=== PATIENT | female | born 1940 | race Caucasian/White ===

== ENCOUNTER 2019-09-19 10:19 | Outpatient (CLI) | payer MEDICARE, SELFPAY ==
--- NOTE | ~2019-09-19 | MM_ITS ---
EXAMINATION: MM screening [facility] HISTORY: Screening mammogram TECHNIQUE: Craniocaudal and mediolateral oblique 3-D tomosynthesis images were obtained and synthetic 2-D images were generated. CAD analysis was submitted and interpreted. COMPARISON: Comparison to multiple prior studies sequentially, with oldest reviewed study dated 05/05. BREAST PARENCHYMAL COMPOSITION: The breasts are extremely dense, which lowers the sensitivity of mamm ography FINDINGS: There are benign breast calcifications. There is no evidence of suspicious mass, calcificat ion, or architectural distortion to suggest malignancy in either breast. There has been no suspicious interval change. IMPRESSION: 1. No mammographic evidence of malignancy. 2. Recommend routine screening mammography in one year. BI-RADS Category 2: Benign finding(s). Reviewed, dictated and finalized at location A.
== END 2019-09-19 10:20 | disposition home or self-care (01) ==
PROVIDERS: PCP Internal Medicine; Visit Provider Internal Medicine
DX: Z12.31 Encounter for screening mammogram for malignant neoplasm of breast (principal)
CPT/HCPCS: 77063; 77067

== ENCOUNTER 2020-11-04 09:52 | Outpatient (CLI) | payer MEDICARE, SELFPAY ==
--- NOTE | ~2020-11-04 | MM_ITS ---
EXAMINATION: MM screening [facility] BI w aj HISTORY: Screening TECHNIQUE: Craniocaudal and mediolateral oblique 3-D tomosynthesis images were obtained and synthetic 2-D images were generated. CAD analysis was submitted and interpreted. COMPARISON: Comparison to multiple prior studies sequentially, with oldest reviewed study dated 05/05. BREAST PARENCHYMAL COMPOSITION: The breasts are extremely dense, which lowers the sensitivity of mamm ography. FINDINGS: There are benign bilateral breast calcifications. There is no evidence of suspicious mass, calcification, or architectural distortion to suggest malignancy in either breast. There has been no suspicious interval change. IMPRESSION: 1. No mammographic evidence of malignancy. 2. Recommend routine screening mammography in one year. BI-RADS Category 2: Benign finding(s). Reviewed, dictated and finalized at location A.
== END 2020-11-04 09:53 | disposition home or self-care (01) ==
LOC: ANHIMG 09:56
PROVIDERS: PCP Internal Medicine; Visit Provider Internal Medicine
DX: Z12.31 Encounter for screening mammogram for malignant neoplasm of breast (principal)
CPT/HCPCS: 77063; 77067

== ENCOUNTER 2021-03-17 14:19 | Outpatient (CLI) | payer MEDICARE, SELFPAY | END 2021-03-17 14:20 | disposition home or self-care (01) | LOC: ANHAUDIO 14:27 | PROVIDERS: PCP Internal Medicine; Visit Provider Nurse Practitioner Family | DX: H90.3 Sensorineural hearing loss, bilateral (principal) | CPT/HCPCS: 92557; 92567 ==

== ENCOUNTER 2021-12-02 08:38 | Outpatient (CLI) | payer MEDICARE, SELFPAY ==
--- NOTE | ~2021-12-02 | MM_ITS ---
EXAMINATION: MM screening [facility] w aj HISTORY: Screening mammogram TECHNIQUE: Craniocaudal and mediolateral oblique 3-D tomosynthesis images were obtained and synthetic 2-D images were generated. CAD analysis was submitted and interpreted. COMPARISON: 11/04/2020, 09/19/2019, 06/23/2019 bilateral screening mammogram examinations BREAST PARENCHYMAL COMPOSITION: The breasts are extremely dense, which lowers the sensitivity of mamm ography. FINDINGS: There is no evidence of suspicious mass, calcification, or architectural distortion to sugg est malignancy in either breast. There has been no suspicious interval change. IMPRESSION: 1. No mammographic evidence of malignancy. 2. Recommend routine screening mammography in one year. BI-RADS Category 1: Negative Reviewed, dictated and finalized at location A.
== END 2021-12-02 08:39 | disposition home or self-care (01) ==
LOC: ANHIMG 08:41
PROVIDERS: PCP Internal Medicine; Visit Provider Internal Medicine
DX: Z12.31 Encounter for screening mammogram for malignant neoplasm of breast (principal)
CPT/HCPCS: 77063; 77067

== ENCOUNTER 2022-07-31 03:17 | Day surgery (SDC) | payer MEDICARE, SELFPAY ==
[2022-07-16 12:32] VITALS: BMI 22.1
--- NOTE | 2022-07-30 14:39 | PM.HPGS ---
History of Present Illness History of Present Illness Consent: Risks, benefits, and alternatives have been discussed and questions answered. Patient agrees to proceed with procedure. Chief complaint: epigastric pain Narrative: Debra Kevin is a 81 year old female Here for investigation of epigastric and right upper quadrant pain.? She also is experiencing nausea.? She describes the pain as relatively sharp.? She gets it a couple times a day.? Usually lasts anywhere from 10 minutes to about 30 minutes.? She is nauseated at times but has not been vomiting.? Her weight is stable.? She finds that if she eats a little she feels better but if she eats too much she gets very uncomfortable and full.? She added that she has lost weight and wonders if her internal organs are being squeezed.? She has a history of ulcer,? Originally diagnosed about 25 years ago.? At that time she had been on meloxicam Review of Systems Review of Systems: All systems reviewed & are unremarkable except as noted in HPI and below PMFSH Past Medical History Medical History Acute sinusitis Carpal tunnel syndrome Disorder of coccyx Essential hypertension Gallstone Hx of transient ischemic attack (TIA) Hyperlipidemia Hypertriglyceridemia Hypothyroidism Knee pain Low back pain Malignant melanoma Osteoarthritis Overactive bladder Spinal enthesopathy Wrist joint pain Surgical History Surgical History History of basal cell carcinoma excision History of carpal tunnel surgery Hx of total knee replacement Hx of vaginal surgery Family History Family History Father Cerebrovascular accident Mother Family history of Alzheimer's disease Family history of congestive heart failure Sibling Family history of Alzheimer's disease Family history of heart disease in male family member before age 55 Social History Social History Smoking status: Never smoker Alcohol intake: current Drinks per week: 3 Substance use: never Substance use type: does not use Living arrangements: alone Meds Home Medications and Allergies Home Medications Medication Instructions Recorded Confirmed Type amitriptyline 25 mg tablet 25 mg PO QHS 07/09/22 07/31/22 History amlodipine 5 mg tablet 5 mg PO DAILY 07/09/22 07/31/22 History esomeprazole magnesium 40 mg 40 mg PO DAILY 07/09/22 07/31/22 History capsule,delayed release gabapentin 300 mg capsule 300 mg PO DAILY 07/09/22 07/31/22 History hydrochlorothiazide 12.5 mg tablet 12.5 mg PO DAILY 07/09/22 07/31/22 History levothyroxine 75 mcg capsule 75 mcg PO DAILY 07/09/22 07/31/22 History lisinopril 40 mg tablet 40 mg PO DAILY 07/09/22 07/31/22 History simvastatin 20 mg tablet 20 mg PO DAILY 07/09/22 07/31/22 History tizanidine 2 mg capsule 2 mg PO DAILY 07/09/22 07/31/22 History tramadol 50 mg tablet 50 mg PO Q6H PRN Pain 07/09/22 07/31/22 History triamcinolone acetonide 0.1 % 1 applic topical BID 07/09/22 07/31/22 History topical cream valacyclovir 500 mg tablet 500 mg PO TID PRN Cold Sores 07/09/22 07/31/22 History denosumab 60 mg/mL subcutaneous 60 mg subcut [id number] 07/14/22 07/31/22 History syringe aspirin 81 mg tablet 81 mg PO DAILY 07/16/22 07/31/22 History Allergies Allergy/AdvReac Type Severity Reaction Status Date / Time No Known Allergies Allergy Verified 07/31/22 10:31 Exam Const: General: alert Orientation/consciousness: patient oriented x3 Resp: Auscultation: clear to auscultation bilaterally Cardio: Rhythm: regular rhythm GI: GI Palp: Yes Soft to palpation and No Tenderness to palpation present (GI) Neuro: General: patient oriented x3 Assessment and Plan Assessment and plan (1) Epigastric pain: Code(s): R10.13 - Epigastric pain Status: Acute
--- NOTE | 2022-07-31 10:05 | WPDANESEPPF ---
Anes - Initial Pre Proc Eval Procedure: Operation Date: 07/31/22 11:30 Proposed Procedures p Esophagogastroduodenoscopy - Christos Pressley MD Date/Time: 07/31/22 10:05 Surgeon: Christos Pressley MD Pre Op Diagnosis: epigastric pain Patient Data Age: 81 Gender: F Height: 1.47 m Weight: 48 kg Allergies Allergy/AdvReac Type Severity Reaction Status Date / Time No Known Allergies Allergy Verified 07/31/22 10:31 Home Medications Medication Instructions Recorded Confirmed Type amitriptyline 25 mg tablet 25 mg PO QHS 07/09/22 07/31/22 History amlodipine 5 mg tablet 5 mg PO DAILY 07/09/22 07/31/22 History esomeprazole magnesium 40 mg 40 mg PO DAILY 07/09/22 07/31/22 History capsule,delayed release gabapentin 300 mg capsule 300 mg PO DAILY 07/09/22 07/31/22 History hydrochlorothiazide 12.5 mg tablet 12.5 mg PO DAILY 07/09/22 07/31/22 History levothyroxine 75 mcg capsule 75 mcg PO DAILY 07/09/22 07/31/22 History lisinopril 40 mg tablet 40 mg PO DAILY 07/09/22 07/31/22 History simvastatin 20 mg tablet 20 mg PO DAILY 07/09/22 07/31/22 History tizanidine 2 mg capsule 2 mg PO DAILY 07/09/22 07/31/22 History tramadol 50 mg tablet 50 mg PO Q6H PRN Pain 07/09/22 07/31/22 History triamcinolone acetonide 0.1 % 1 applic topical BID 07/09/22 07/31/22 History topical cream valacyclovir 500 mg tablet 500 mg PO TID PRN Cold Sores 07/09/22 07/31/22 History denosumab 60 mg/mL subcutaneous 60 mg subcut [id number] 07/14/22 07/31/22 History syringe aspirin 81 mg tablet 81 mg PO DAILY 07/16/22 07/31/22 History Patient hx anesthesia problems: none Family hx anesthesia problems: none Results Review: All pre-operative results and documents have been reviewed as part of the pre-operative evaluation. [facility] Past Medical History Medical History Acute sinusitis Carpal tunnel syndrome Disorder of coccyx Essential hypertension Gallstone Hx of transient ischemic attack (TIA) Hyperlipidemia Hypertriglyceridemia Hypothyroidism Knee pain Low back pain Malignant melanoma Osteoarthritis Overactive bladder Spinal enthesopathy Wrist joint pain Surgical History Surgical History History of basal cell carcinoma excision History of carpal tunnel surgery Hx of total knee replacement Hx of vaginal surgery Family History Family History Father Cerebrovascular accident Mother Family history of Alzheimer's disease Family history of congestive heart failure Sibling Family history of Alzheimer's disease Family history of heart disease in male family member before age 55 Social History Social History Smoking status: Never smoker Alcohol intake: current Drinks per week: 3 Substance use: never Substance use type: does not use Living arrangements: alone Anes - Eval Final PreProcedure Day of Procedure 07/31/22 10:05 Patient weight: normal Heart: regular rate and rhythm Lungs: clear to auscultation and normal air movement Airway: Mallampati scale class II Neurological: alert and oriented Last oral intake: >/= 8 hours ASA classification: III Emergent: no Anesthetic plan: proceed Anesthesia type and monitoring: general GIVS Results Review: All pre-operative results and documents have been reviewed as part of the pre-operative evaluation. Informed Consent: The patient's anesthetic plan and its attendant risks and benefits were discussed with the patient/family/POA. Questions were solicited and answers provided to the satisfaction of the patient/family/POA.
[2022-07-31 10:48] VITALS: BP 179/89; PULSE 83; RESP 20; TEMP 36.4; O2SAT 100
[2022-07-31] MEDS: LACTATED RINGERS 1,000 ML 150 ML IV CONT (11:01)
[2022-07-31 11:31] VITALS: BP 134/77; PULSE 92; RESP 17; TEMP 36.4; O2SAT 100
[2022-07-31 11:41] VITALS: BP 119/64; PULSE 89; RESP 23; TEMP 36.4; O2SAT 100
[2022-07-31 11:51] VITALS: BP 134/76; PULSE 73; RESP 16; TEMP 36.4; O2SAT 100
== END 2022-07-31 12:06 | disposition home or self-care (01) ==
PROVIDERS: PCP Internal Medicine; Visit Provider Internal Medicine Gastroenterology
PROC: 0DJ08ZZ Inspection of Upper Intestinal Tract, Via Natural or Artificial Opening Endoscopic (ICD-10-PCS; CPT 43235; principal; 2022-07-31 11:30)
DX: K25.3 Acute gastric ulcer without hemorrhage or perforation (principal); K25.7 Chronic gastric ulcer without hemorrhage or perforation; R63.4 Abnormal weight loss; Z68.22 Body mass index [BMI] 22.0-22.9, adult; I10 Essential (primary) hypertension; E78.5 Hyperlipidemia, unspecified; E78.1 Pure hyperglyceridemia; E03.9 Hypothyroidism, unspecified; Z82.49 Family history of ischemic heart disease and other diseases of the circulatory system; F10.90 Alcohol use, unspecified, uncomplicated; Z87.891 Personal history of nicotine dependence; Z79.52 Long term (current) use of systemic steroids; Z79.82 Long term (current) use of aspirin; Z79.899 Other long term (current) drug therapy
CPT/HCPCS: 43239; 88305; 88342; J2704; J7120

== ENCOUNTER 2023-03-19 13:04 | Inpatient (IN) | payer MEDICARE, SELFPAY ==
[2023-03-19] VITALS (16 sets, daily range): BP systolic 141–219; BP diastolic 71–99; PULSE 71–105; RESP 13–29; TEMP 36.6–36.8; O2SAT 95–100
--- NOTE | ~2023-03-19 | CT_ITS ---
EXAMINATION: CT brain wo con INDICATION: Headache COMPARISON: None TECHNIQUE: Standard unenhanced head CT. The dose-length product (DLP) was 605.33 mGy-cm. The mA was a djusted according to patient size. Iterative reconstruction technique was employed. FINDINGS: No acute intraparenchymal hemorrhage. No evidence of mass lesion. No evidence of acute infa rction. There is mild periventricular and subcortical hypodensity probably related to small vessel is chemic disease. There is mild prominence of the sulci and ventricles related to cerebral atrophy. Int racranial calcified cerebral atherosclerosis is noted. No extra-axial collections. No mass effect or midline shift. Changes in the globes are likely from ocular lens surgery. The visualized sinuses and mastoid air cells are well aerated. IMPRESSION: 1. No acute intracranial abnormality. 2. Age related findings. Reviewed, dictated and finalized at location F.
--- NOTE | ~2023-03-19 | XR_ITS ---
EXAMINATION: XR chest 2V 03/19/2023 13:45 INDICATION: Weakness. PROCEDURE: 2 view chest COMPARISON: No prior studies for comparison. FINDINGS: The lungs are clear. The cardiomediastinal silhouette is within normal limits. There are no pleural effusions. There is no pneumothorax suspected. There is atherosclerosis of the aorta. Th ere is scoliosis. There are surgical fusion changes at the cervicothoracic junction. IMPRESSION: 1: NO ACUTE CARDIOPULMONARY DISEASE. Reviewed, dictated and finalized at location B.
--- NOTE | ~2023-03-19 | CT_ITS ---
EXAMINATION: CTA brain carotid DATE: 03/19/2023 19:35 INDICATION: Expressive aphasia TECHNIQUE: Computed tomographic angiography (CTA) of the head was performed with 100 mL Omnipaque-350 intravenous contrast. CTA of the neck was performed with intravenous contrast. The dose-length produ ct was 890.70 mGy-cm. Maximum intensity projection and volume rendered 3D-reconstructions were create d by the technologist on a separate workstation. Automated exposure control and iterative reconstruct ion technique were employed. COMPARISON: None. FINDINGS: HEAD CTA: There is no acute intraparenchymal hemorrhage. No evidence of mass lesion. No evidence of a cute infarction. There is mild periventricular and subcortical hypodensity probably related to small vessel ischemic disease. There is mild prominence of the sulci and ventricles related to cerebral atr ophy. Intracranial calcified cerebral atherosclerosis is noted. There are no extra-axial collections. There is no mass effect or midline shift. Changes in the globes are likely from ocular lens surgery. The visualized sinuses and mastoid air cells are well aerated. There is no significant stenosis of the basilar artery or posterior cerebral arteries. There is no si gnificant stenosis of the intracranial internal carotid arteries or the anterior or middle cerebral a rteries. The anterior communicating artery and posterior communicating arteries are normal. There is no aneurysm. NECK CTA: The thyroid gland is unremarkable. The submandibular and parotid glands are symmetric. Ther e is no lymphadenopathy. There are no masses identified. The airway is unremarkable. The superior med iastinum is unremarkable. There are surgical changes of the cervical spine. There is 0% stenosis of the proximal right internal carotid artery relative to normal distal artery l umen diameter (NASCET criteria). There is 25% stenosis of the proximal left internal carotid artery r elative to normal distal artery lumen diameter. IMPRESSION: 1. No acute intracranial abnormality. Normal head CTA. 2. 0% stenosis of the proximal right internal carotid artery relative to normal distal artery lumen d iameter (NASCET criteria). 3. 25% stenosis of the proximal left internal carotid artery relative to normal distal artery lumen d iameter. Reviewed, dictated and finalized at location F. IMPRESSION: 1. No acute intracranial abnormality. Normal head CTA. 2. 0% stenosis of the proximal right internal carotid artery relative to normal distal artery lumen diameter (NASCET criteria). 3. 25% stenosis of the proximal left internal carotid artery relative to normal distal artery lumen diameter.
--- NOTE | ~2023-03-19 | MR_ITS ---
EXAMINATION: MR brain/brain stem wo/w con DATE: 03/20/2023 11:27 INDICATION: Transient ischemic episode TECHNIQUE: Magnetic resonance imaging (MRI) of the brain and brainstem was performed without and with 9 mL Multihance intravenous contrast. Sequences included sagittal and axial T1-weighted SE, axial di ffusion-weighted FS SE, axial T2*-weighted GRE, axial T2-weighted FLAIR, and axial T2-weighted FSE. P ostcontrast axial, sagittal and coronal T1-weighted SE was obtained. Apparent diffusion coefficient ( ADC) maps were created. COMPARISON: Head CT and CT angiogram dated 03/19/2023 FINDINGS: There are no areas of restricted diffusion to suggest acute infarction. No intracranial hemorrhage or abnormal intracranial mass lesion. There are scattered areas of nonspecific increased T2-weighted si gnal intensity in the cerebral white matter, predominantly involving the deep and periventricular whi te matter which is within normal limits for age. 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 No other abnormally enhancing lesions identified. There are no intraparenchymal signal abnormalities seen on the other pulse sequences. The ventricles are symmetric and normal in size. The re are no abnormal extra-axial fluid collections. Flow voids are seen in the cerebral arteries on the T2-weighted sequences consistent with their expected patency. Changes of bilateral intraocular lens replacement. Metallic magnetic field artifact along the posterior aspect of the cervical and upper mo st thoracic spine consistent with an instrumented posterior spinal fusion. IMPRESSION: 1. 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 No acute intracranial pr ocess or other abnormally enhancing brain lesions. 2. Scattered periventricular predominant white matter T2 hyperintensity which is within normal limits for age and likely sequela of chronic small vessel ischemic disease. Reviewed, dictated and finalized at location A. IMPRESSION: 1. 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 No acute intracranial process or other abnormally enhancing brain lesions. 2. Scattered periventricular predominant white matter T2 hyperintensity which i s within normal limits for age and likely sequela of chronic small vessel ische nasra disease.
--- NOTE | ~2023-03-19 | US_ITS ---
EXAMINATION: US retroperitoneal duplex ltd DATE: 03/24/2023 08:39 INDICATION: hypertension TECHNIQUE: Multiple grayscale, color Doppler, and pulsed Doppler images of the kidneys and renal duyen brisa were obtained. COMPARISON: None. FINDINGS: The aorta peak systolic velocity is 154 cm/s. The right renal artery peak systolic velocity is 54 cm/ s in the proximal segment, 53 cm/s in the mid segment, and 68 cm/s in the distal segment. The left re nal artery peak systolic velocity is 81 cm/s in the proximal segment, 69 cm/s in the mid segment, and 78 cm/s in the distal segment. IMPRESSION: 1. No Doppler evidence of renal artery stenosis. Reviewed, dictated and finalized at location A.
--- NOTE | 2023-03-19 13:12 | ECG_ITS ---
Measurements Intervals [place] Rate: 77 P: 65 OR: 159 QRS: -48 QRSD: 86 T: 10 QT: 358 QTc: 406 Interpretive Statements SINUS RHYTHM POSSIBLE LEFT ATRIAL ENLARGEMENT INCOMPLETE RIGHT BUNDLE BRANCH BLOCK POSSIBLE LEFT VENTRICULAR HYPERTROPHY CONSIDER ANTERIOR INFARCT, AGE INDETERMINATE INFERIOR INFARCT, AGE INDETERMINATE ABNORMAL ECG NO PREVIOUS ECG AVAILABLE FOR COMPARISON Electronically Signed On 03-19-2023 20:34:14 CDT by Alfred Aguilar D.O.
[2023-03-19 13:31] LABS: Basophils Percent Auto 0.6 % (0.2-1.2); Eosinophils Absolute Auto 0.1 K/mm3 (0-0.3); Eosinophils Percent Auto 1.5 % (0-4.4); Hematocrit 37.5 % (37.0-47.0); Hemoglobin 12.3 g/dL (12.0-15.0); Immature Granulocyte Absolute 0.01 K/mm3 (0.00-0.031); Immature Granulocyte Percent A 0.1 % (0-0.5); Lymphocytes Absolute Auto 1.29 K/mm3 (0.9-3.2); Lymphocytes Percent Auto 19.3 % (18.3-44.2); Mean Corpuscular HGB Conc 32.8 g/dl (32-36); Mean Corpuscular Hemoglobin 34.8 pg (26-34); Mean Corpuscular Volume 106.2 fl (80-100); Mean Platelet Volume 8.3 fl (7.4-10.4); Monocytes Absolute Auto 0.5 K/mm3 (0.1-0.6); Monocytes Percent Auto 7.9 % (2.6-8.5); Neutrophils Absolute Auto 4.7 K/mm3 (1.3-6.7); Neutrophils Percent Auto 70.6 % (45.5-73.1); Platelet Count Result 269 k/mm3 (150-375); Red Blood Count 3.53 M/mm3 (4.2-5.4); Red Cell Distribution Width 12.8 % (11.5-14.5); White Blood Count 6.7 K/mm3 (4.5-10.0)
[2023-03-19 13:41] LABS: Alanine Aminotransferase 31 U/L (6-35); Albumin Level 4.6 g/dL (3.5-5.1); Alkaline Phosphatase 51 U/L (38-126); Anion Gap 11 mmol/L (8-16); Aspartate Amino Transferase 43 U/L (14-36); Bilirubin,Total 0.3 mg/dL (0.2-1.3); Blood Urea Nitrogen 27 mg/dL (7-17); Calcium 9.3 mg/dL (8.4-10.2); Carbon Dioxide 21 mmol/L (22-30); Chloride 99 mmol/L (98-107); Estimated Glomerular Filt Rate 43; Glucose 135 mg/dL (65-110); Potassium 4.5 mmol/L (3.4-5.0); Sodium 131 mmol/L (137-145)
[2023-03-19 13:49] LABS: Anisocytosis 1+ (NORMAL); Platelet Estimate Adequate (Adequate); Schistocytes None Seen (NORMAL)
[2023-03-19 14:14] LABS: Appearance Urine Clear (Clear); Bilirubin Urine Negative (Negative); Blood Urine Negative (Negative); Color Urine Dark Yellow (Yellow); Glucose Urine UA Negative (Negative); Ketones Urine Negative (Negative); Leukocyte Esterase Ur Negative LEU/UL (Negative); Nitrate Urine Negative (Negative); Protein Urine Negative (Negative); Specific Grav Ur 1.013 (1.001-1.035); Urobilinogen Urine 0.2 mg/dL (<2.0)
[2023-03-19 14:23] LABS: Add Urine Microscopic? NO
--- NOTE | 2023-03-19 17:28 | ED.WEAKNESS ---
HPI - Weakness General Chief complaint: Weakness Stated complaint: headache since wednesday, shakey since this morning Time Seen by Provider: 03/19/23 16:58 History of Present Illness HPI Narrative: 82-year-old female with a history of hypertension, TIA, hyperlipidemia, hypothyroidism reports for evaluation for generalized weakness, unsteady gait, difficulty concentrating and expressive aphasia this morning. Patient states she woke up at 6:15 AM and felt that her gait was more unsteady than usual. States she was discharged and came home at around 9:30 AM began having difficulty concentrating while reading the newspaper and states she had difficulty finding words along with generalized weakness. She states her symptoms improved at 3:30 PM, however she still feels brain fog and generalized weakness. She also reports a headache since yesterday that is in her left occiput. She originally stated that she had vision changes, however upon further questioning, she denied blurred vision, diplopia or loss of vision. She states that she feels the blurred vision was more difficulty concentrating than it was true vision changes. She denies head injury or trauma, she is not anticoagulated. Denies focal numbness or weakness, neck pain, fever. She reports a cough that is unchanged from baseline. Denies chest pain or shortness of breath, abdominal pain, nausea or vomiting, diarrhea, dysuria or hematuria. She states that she has residual left-sided weakness from prior TIA. Reports taking all of her medications as prescribed this morning. Related Data Home Medications Medication Instructions Recorded Confirmed amitriptyline 25 mg tablet 25 mg PO QHS 07/09/22 03/20/23 amlodipine 5 mg tablet 5 mg PO DAILY 07/09/22 03/20/23 gabapentin 300 mg capsule 300 mg PO HS 07/09/22 03/20/23 hydrochlorothiazide 12.5 mg tablet 12.5 mg PO DAILY 07/09/22 03/20/23 levothyroxine 75 mcg capsule 75 mcg PO DAILY 07/09/22 03/20/23 lisinopril 40 mg tablet (Zestril) 40 mg PO DAILY 07/09/22 03/20/23 simvastatin 20 mg tablet 20 mg PO DAILY 07/09/22 03/20/23 tizanidine 2 mg capsule 2 mg PO PRN PRN muscle spasms 07/09/22 03/20/23 tramadol 50 mg tablet 50 mg PO Q6H PRN Pain 07/09/22 03/20/23 valacyclovir 500 mg tablet 500 mg PO TID PRN Cold Sores 07/09/22 03/20/23 denosumab 60 mg/mL subcutaneous 60 mg subcut [id number] 07/14/22 03/20/23 syringe aspirin 81 mg tablet 81 mg PO DAILY 07/16/22 03/20/23 acetaminophen 1,000 mg PO Q6H 03/20/23 03/20/23 dextromethorphan-guaifenesin 30 1 - 2 tablet PO PRN PRN cough, 03/20/23 03/20/23 mg-600 mg tablet extended congestion [id number] hr (Mucinex DM) esomeprazole magnesium 40 mg 40 mg PO DAILY 03/20/23 03/20/23 capsule,delayed release (Nexium) Allergies Allergy/AdvReac Type Severity Reaction Status Date / Time No Known Allergies Allergy Verified 07/31/22 10:31 Review of Systems Review of Systems: CONSTITUTIONAL: Denies fever, chills EYES: See HPI ENT: Denies rhinorrhea, congestion, sore throat, or otalgia. CARDIOVASCULAR: Denies chest pain, palpitations, or edema. RESPIRATORY: See HPI GASTROINTESTINAL: Denies abdominal pain, nausea, vomiting, or diarrhea. GENITOURINARY: Denies dysuria or hematuria. SKIN: Denies rash or itching. MUSCULOSKELETAL: Denies back pain, joint pain, or myalgia. NEUROLOGIC: See HPI PSYCHIATRIC: Denies anxiety or depression. [facility] Past Medical History Medical History Acute sinusitis Carpal tunnel syndrome Disorder of coccyx Essential hypertension Gallstone Hx of transient ischemic attack (TIA) Hyperlipidemia Hypertriglyceridemia Hypothyroidism Knee pain Low back pain Malignant melanoma Osteoarthritis Overactive bladder Spinal enthesopathy Wrist joint pain Surgical History Surgical History History of basal cell carcinoma excision History of carpal tunnel surgery Hx of total k
[2023-03-19 17:52] LABS: Prothrombin Time 13.3 Seconds (11.1-14.7)
[2023-03-19 17:53] LABS: Partial Thromboplastin Time 35.2 SECONDS (22.3-36.8)
[2023-03-19 18:01] LABS: Troponin I < 0.012 ng/mL (0.000-0.034)
[2023-03-19] MEDS: ASPIRIN 81 MG CHEWABLE TABLET 324 MG PO (18:20)
[2023-03-19] MEDS: ACETAMINOPHEN 325 MG TABLET 650 MG PO (19:03)
[2023-03-19] MEDS: diphenhydrAMINE HCl INJ 50 MG/ML VIAL 25 MG IV PUSH (19:03)
[2023-03-19] MEDS: SODIUM CHLORIDE 0.9% IV 1,000 ML 999 ML IV CONT (19:04)
[2023-03-19] MEDS: PROCHLORPERAZINE EDISYLATE 10 MG/2 ML VIAL IV PUSH (19:04)
[2023-03-19 20:05] LABS: Phosphorus 4.5 mg/dL (2.5-4.5)
[2023-03-19] MEDS: hydrALAZINE HCL 20 MG/ML VIAL 10 MG IV PUSH (20:26)
--- NOTE | 2023-03-19 21:46 | PM.IMHP ---
H&P: HPI History of Present Illness Date/Time: 03/19/23 21:46 Chief Complaint: ams Narrative: THIS IS AN 82-YEAR-OLD FEMALE WITH PAST MEDICAL HISTORY SIGNIFICANT FOR HYPERTENSION, HYPOTHYROIDISM, OSTEOARTHRITIS, LOWER BACK PAIN, PATIENT COMES TO THE EMERGENCY ROOM AFTER HAVING EPISODE OF SPEECH DISTURBANCE HEADACHE BLURRY VISION. PATIENT HAD BEEN IN HER USUAL STATE OF HEALTH UP UNTIL THIS POINT, DENIES ANY LOSS OF CONSCIOUSNESS SYNCOPE NEAR SYNCOPE DIZZINESS OR LIGHTHEADEDNESS. IN EMERGENCY ROOM PATIENT WAS FOUND TO HAVE A SYSTOLIC BLOOD PRESSURE IN THE 200S. AT THE TIME OF MY VISIT PATIENT'S SYMPTOMS HAD RESOLVED PRELIMINARY WORKUP HAS BEEN ESSENTIALLY NONREVEALING EXAMINATION: XR chest 2V 03/19/2023 13:45 INDICATION: Weakness. PROCEDURE:? 2 view chest COMPARISON: No prior studies for comparison. FINDINGS: The lungs are clear.? The cardiomediastinal silhouette is within normal limits.? There are no pleural effusions.? There is no pneumothorax suspected.? There is atherosclerosis of the aorta. There is scoliosis. There are surgical fusion changes at the cervicothoracic junction. IMPRESSION: 1:? NO ACUTE CARDIOPULMONARY DISEASE. EXAMINATION: CT brain wo con ? INDICATION: Headache ? COMPARISON: None TECHNIQUE: Standard unenhanced head CT. The dose-length product (DLP) was 605.33 mGy-cm. The mA was adjusted according to patient size. Iterative reconstruction technique was employed. ? FINDINGS: No acute intraparenchymal hemorrhage. No evidence of mass lesion. No evidence of acute infarction. There is mild periventricular and subcortical hypodensity probably related to small vessel ischemic disease. There is mild prominence of the sulci and ventricles related to cerebral atrophy. Intracranial calcified cerebral atherosclerosis is noted. No extra-axial collections. No mass effect or midline shift. Changes in the globes are likely from ocular lens surgery. The visualized sinuses and mastoid air cells are well aerated. IMPRESSION: 1. No acute intracranial abnormality. 2. Age related findings. EXAMINATION: CTA brain carotid DATE: 03/19/2023 19:35 INDICATION: Expressive aphasia TECHNIQUE: Computed tomographic angiography (CTA) of the head was performed with 100 mL Omnipaque-350 intravenous contrast. CTA of the neck was performed with intravenous contrast. The dose-length product was 890.70 mGy-cm. Maximum intensity projection and volume rendered 3D-reconstructions were created by the technologist on a separate workstation. Automated exposure control and iterative reconstruction technique were employed. COMPARISON: None. FINDINGS: HEAD CTA: There is no acute intraparenchymal hemorrhage. No evidence of mass lesion. No evidence of acute infarction. There is mild periventricular and subcortical hypodensity probably related to small vessel ischemic disease. There is mild prominence of the sulci and ventricles related to cerebral atrophy. Intracranial calcified cerebral atherosclerosis is noted. There are no extra-axial collections. There is no mass effect or midline shift. Changes in the globes are likely from ocular lens surgery.? The visualized sinuses and mastoid air cells are well aerated. There is no significant stenosis of the basilar artery or posterior cerebral arteries. There is no significant stenosis of the intracranial internal carotid arteries or the anterior or middle cerebral arteries. The anterior communicating artery and posterior communicating arteries are normal. There is no aneurysm. NECK CTA: The thyroid gland is unremarkable. The submandibular and parotid glands are symmetric. There is no lymphadenopathy. There are no masses identified. The airway is unremarkable. The superior mediastinum is unremarkable. There are surgical changes of the cervical spine. There is 0% stenosis of the proximal right internal carotid artery relative to normal distal artery lumen diameter (NASCET criteria). There is 25% st
[2023-03-19 22:01] LABS: Influenza A QL RT-PCR Negative (Negative); Influenza B QL RT-PCR Negative (Negative); SARS-CoV-2 RNA PCR Negative (Negative)
[2023-03-20] VITALS (17 sets, daily range): BP systolic 162–220; BP diastolic 69–96; PULSE 65–104; RESP 12–20; TEMP 36.1–36.9; O2SAT 94–98; BMI 22.1
[2023-03-20] MEDS: ACETAMINOPHEN 325 MG TABLET 650 MG PO ×3 (01:19→20:21)
--- NOTE | 2023-03-20 01:40 | ADMGEN ---
This patient, Debra Kevin, was admitted to [facility] Surg Room 326-01 at 0030. Patient/family oriented to hospital policies and general routines including ID bracelet, bed and alarms, visiting hours, pain management, procedures, bathroom and other care routines, personal items, smoking policy, room service/diet, and visiting hours. Information on how to activate the Rapid Response Team has been discussed. Patient/Family are encouraged to report perceived risks to care and to ask questions if they do not understand what they are told or what they should do.
[2023-03-20] MEDS: HYDROmorphone HCL INJ (*CRX) 1 MG/ML SYR IV PUSH (03:10)
--- NOTE | 2023-03-20 04:20 | PC.NURSE ---
Pt states she would like to be a DNR, and has paperwork that her daughter will bring in
[2023-03-20] MEDS: LABETALOL HCL INJ 100 MG/20 ML VIAL 20 MG IV PUSH ×3 (08:26→20:12)
[2023-03-20] MEDS: traMADol HCL (*CRX) 50 MG TABLET PO ×2 (10:21→16:40)
[2023-03-20] MEDS: lisinopriL 20 MG TABLET 40 MG PO (10:22)
[2023-03-20] MEDS: ASPIRIN 81 MG ENTERIC TABLET PO (10:22)
[2023-03-20] MEDS: PANTOPRAZOLE 40 MG TABLET PO (10:22)
[2023-03-20] MEDS: SIMVASTATIN 20 MG TABLET PO (10:22)
[2023-03-20] MEDS: LEVOTHYROXINE SODIUM 75 MCG TABLET PO (10:22)
--- NOTE | 2023-03-20 10:33 | PM.IMPN ---
Progress Note: A&P Assessment and Plan (1) Hypertensive emergency: Code(s): I16.1 - Hypertensive emergency Status: Acute Assessment and Plan: ADMIT TO MED TELE CAUTIOUS NORMALIZATION OF BLOOD PRESSURE RESTART HOME MEDS GRADUALLY SUPPORTIVE CARE CT HEAD NEGATIVE FOR ACUTE FINDING (2) Headache: Qualifiers: Headache chronicity pattern: acute headache Headache type: unspecified Intractability: intractable Qualified Code(s): R51.9 - Headache, unspecified Code(s): R51.9 - Headache, unspecified Status: Acute Assessment and Plan: LIKELY SECONDARY TO HYPERTENSION SUPPORTIVE CARE (3) Speech disturbance: Code(s): R47.9 - Unspecified speech disturbances Status: Acute Assessment and Plan: RESOLVED CT HEAD REVIEWED MRI PENDING Subjective Date/time seen: 03/20/23 10:33 Interval history: Patient reports nausea. Chronic left upper extremity weakness. No other focal neurological weakness Review of Systems Review of Systems: Negative other than HPI Exam Const: General: comfortable, no acute distress, well developed, alert, awake and average body habitus Nutritional Appearance: average body habitus Orientation/consciousness: patient oriented x3 HENMT: Head: normal to inspection, normocephalic and atraumatic Ears: hearing grossly normal bilaterally Face/Nose/Sinus: normal facial exam Face and sinus: normal facial exam Eyes: General: appearance normal, both eyes and all related structures Pupils: Equal, round and reactive pupils present EOM: EOMs intact bilaterally Neck: Neck: full ROM, no lymphadenopathy and no JVD Thyroid: thyroid normal Lymphatic: no lymphadenopathy noted Resp: Effort & Inspection: normal respiratory effort and able to speak in complete sentences Auscultation: clear to auscultation bilaterally Cardio: Jugular venous distension: no JVD Rate: regular rate Rhythm: regular rhythm Heart sounds: S1 normal heart sound present and S2 normal heart sound present GI: GI Palp: Yes Soft to palpation and Yes No hepatosplenomegaly present : General: Yes deferred Skin: Rashes: no rashes Wounds: no wounds Neuro: General: patient oriented x3 and CN's II-XI intact bilaterally Cranial nerves: Yes CN's II-XII intact bilaterally and Yes Equal, round and reactive pupils present Cognition (Neuro): normal cognition Speech: normal speech Gait exam (Neuro): Unable to assess gait Motor exam (neuro): 5/5 motor strength present throughout Extrem: General: normal to inspection, full ROM, no joint enlargement and no pedal edema Objective Data Vital Signs Vital Signs: Vital Signs - 24 hr 03/19/23 13:07 03/19/23 15:30 03/19/23 18:55 Temperature 98.3 F 97.9 F Pulse Rate 78 71 Respiratory Rate 16 19 Blood Pressure 189/81 H 199/94 H Pulse Oximetry 95 100 98 Oxygen Delivery Room Air 03/19/23 19:00 03/19/23 19:01 03/19/23 19:02 Temperature Pulse Rate Respiratory Rate Blood Pressure 216/87 H 205/71 H Pulse Oximetry 97 97 98 Oxygen Delivery 03/19/23 20:28 03/19/23 20:40 03/19/23 21:41 Temperature Pulse Rate 77 87 98 Respiratory Rate 13 16 16 Blood Pressure 219/87 H 195/78 H 190/92 H Pulse Oximetry 98 100 97 Oxygen Delivery 03/19/23 20:41 03/19/23 21:56 03/20/23 00:08 Temperature Pulse Rate 86 92 103 H Respiratory Rate 19 16 17 Blood Pressure 195/78 H 172/76 H 162/69 H Pulse Oximetry 100 97 96 Oxygen Delivery 03/19/23 22:01 03/19/23 22:18 03/19/23 22:48 Temperature Pulse Rate 97 103 H 103 H Respiratory Rate 19 29 H 13 Blood Pressure 141/88 H 189/87 H 193/92 H Pulse Oximetry 97 Oxygen Delivery 03/19/23 23:01 03/19/23 23:16 03/20/23 00:00 Temperature Pulse Rate 105 H 104 H Respiratory Rate 20 20 Blood Pressure 193/99 H 195/84 H Pulse Oximetry 95 97 Oxygen Delivery Room Air 03/20/23 01:51 03/20/23 05:51 03/20/23 04:00 Temperature 98.4 F 9
[2023-03-20] MEDS: ONDANSETRON INJ 4 MG/2 ML VIAL IV PUSH ×2 (11:20→20:12)
[2023-03-20] MEDS: SODIUM CHLORIDE 0.9% IV 1,000 ML 50 ML IV CONT (18:55)
--- NOTE | 2023-03-20 18:55 | PC.NURSE ---
On 03/20/23, the CYBER SPECIAL AGENT, Manju, provided care and completed [facility] documentation on this patient. I have reviewed the CYBER SPECIAL AGENT's documentation and agree with the findings.
[2023-03-21] VITALS (11 sets, daily range): BP systolic 166–199; BP diastolic 65–87; PULSE 65–101; RESP 12–20; TEMP 36.1–37.1; O2SAT 95–97
[2023-03-21] MEDS: traMADol HCL (*CRX) 50 MG TABLET PO ×3 (04:52→18:48)
[2023-03-21] MEDS: LEVOTHYROXINE SODIUM 75 MCG TABLET PO (05:55)
[2023-03-21] MEDS: ACETAMINOPHEN 325 MG TABLET 650 MG PO ×2 (05:57→16:50)
[2023-03-21] MEDS: ONDANSETRON INJ 4 MG/2 ML VIAL IV PUSH ×2 (09:07→17:00)
[2023-03-21] MEDS: LABETALOL HCL INJ 100 MG/20 ML VIAL 20 MG IV PUSH ×2 (09:28→16:55)
[2023-03-21] MEDS: lisinopriL 20 MG TABLET 40 MG PO (09:29)
[2023-03-21] MEDS: SIMVASTATIN 20 MG TABLET PO (09:29)
[2023-03-21] MEDS: ASPIRIN 81 MG ENTERIC TABLET PO (09:29)
[2023-03-21] MEDS: PANTOPRAZOLE 40 MG TABLET PO (09:29)
[2023-03-21] MEDS: hydrALAZINE HCL 25 MG TABLET PO ×2 (12:04→16:50)
--- NOTE | 2023-03-21 15:22 | PM.IMPN ---
Progress Note: A&P Assessment and Plan (1) Hypertensive emergency: Code(s): I16.1 - Hypertensive emergency Status: Acute Assessment and Plan: CT head is negative No focal abnl Pt has been receiving IV labetalol Pt to start on hydralazine additional BP med for better BP control bp now 160/60 (2) Headache: Qualifiers: Headache chronicity pattern: acute headache Headache type: unspecified Intractability: intractable Qualified Code(s): R51.9 - Headache, unspecified Code(s): R51.9 - Headache, unspecified Status: Acute Assessment and Plan: LIKELY SECONDARY TO HYPERTENSION SUPPORTIVE CARE (3) Speech disturbance: Code(s): R47.9 - Unspecified speech disturbances Status: Acute Assessment and Plan: ct head is negative MRI head shows Likely incidental developmental venous anomaly in the right frontal lobe. No acute intracranial process or other abnormally enhancing brain lesions. 2. Scattered periventricular predominant white matter T2 hyperintensity which is within normal limits for age and likely sequela of chronic small vessel ischemic disease New stroke looks unlikely Subjective Date/time seen: 03/21/23 15:22 Interval history: 82-YEAR-OLD FEMALE WITH PAST MEDICAL HISTORY SIGNIFICANT FOR HYPERTENSION, HYPOTHYROIDISM, OSTEOARTHRITIS, LOWER BACK PAIN, PATIENT COMES TO THE EMERGENCY ROOM AFTER HAVING EPISODE OF SPEECH DISTURBANCE HEADACHE? BLURRY VISION.? 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 and her speech is better now Plan to increase BP oral meds add hydralazine to regime Review of Systems Review of Systems: headaches nausea vomiting Exam Const: General: comfortable, no acute distress, well developed, alert, awake and average body habitus Nutritional Appearance: average body habitus Orientation/consciousness: patient oriented x3 HENMT: Head: normal to inspection, normocephalic and atraumatic Ears: hearing grossly normal bilaterally Face/Nose/Sinus: normal facial exam Face and sinus: normal facial exam Eyes: General: appearance normal, both eyes and all related structures Pupils: Equal, round and reactive pupils present EOM: EOMs intact bilaterally Neck: Neck: full ROM, no lymphadenopathy and no JVD Thyroid: thyroid normal Lymphatic: no lymphadenopathy noted Resp: Effort & Inspection: normal respiratory effort and able to speak in complete sentences Auscultation: clear to auscultation bilaterally Cardio: Jugular venous distension: no JVD Rate: regular rate Rhythm: regular rhythm Heart sounds: S1 normal heart sound present and S2 normal heart sound present : General: Yes deferred Skin: Rashes: no rashes Wounds: no wounds Neuro: General: patient oriented x3, CN's II-XI intact bilaterally and Unable to assess gait Cranial nerves: Yes CN's II-XII intact bilaterally and Yes Equal, round and reactive pupils present Cognition (Neuro): normal cognition Speech: normal speech and Abnormal speech present Gait exam (Neuro): Unable to assess gait Motor exam (neuro): 5/5 motor strength present throughout Sensory Exam: No Sensory deficit (Neuro) Extrem: General: normal to inspection, full ROM, no joint enlargement and no pedal edema Objective Data Vital Signs Vital Signs: Vital Signs - 24 hr 03/20/23 15:47 03/20/23 16:00 03/20/23 18:56 Temperature Pulse Rate 75 70 68 Respiratory Rate Blood Pressure 184/79 H Pulse Oximetry Oxygen Delivery 03/20/23 20:00 03/20/23 20:15 03/21/23 00:00 Temperature 36.9 C Pulse Rate 91 81 69 Respiratory Rate 18 Blood Pressure 183/80 H Pulse Oximetry 95 Oxygen Delivery 03/21/23 00:00 03/21/23 04:00 03/21/23 04:00 Temperature 36.4 C 36.4 C Pulse Rate 73 74 75 Respiratory Rate 17 18 Blood
--- NOTE | 2023-03-21 20:38 | PC.NURSE ---
On 03/21/23, the FINISHER CARD TENDER, Manju, provided care and [facility]. I have reviewed the FINISHER CARD TENDER's documentation and agree with the findings.
[2023-03-22] VITALS (16 sets, daily range): BP systolic 149–205; BP diastolic 60–92; PULSE 59–84; RESP 14–20; TEMP 36.4–36.7; O2SAT 93–98; BMI 22.1
--- NOTE | 2023-03-22 | ECHO_ITS ---
Patient Info Name: Debra Kevin Age: 82 years : 1940 Gender: Female Ht: 50 in Wt: 99 lbs BSA: 1.28 m2 HR: 69 bpm BP: 191 / 79 mmHg Heart Rhythm: Sinus Rhythm Technical Quality: Fair Exam Date: 03/22/2023 1:38 PM Exam Location: [facility] Card Pulmonary Patient Status: Inpatient Admit Date: 03/20/2023 Staff Ordering Physician: Aisha Villavicencio PA-C Medical Health Researcher: Miguelina Esparza RDCS Attending Provider: Hiram Echavarria MD Referring Physician: Saud JAMES; Exam Type: CA echo doppler color flow Study Info Indications - cva workup, new murmur Complete two-dimensional, color flow and Doppler transthoracic echocardiogram is performed. Summary 1. Complete two-dimensional, color flow and Doppler transthoracic echocardiogram is performed. 2. Left ventricular chamber dimension is normal. 3. Left ventricular systolic function is normal, estimated at >70%. 4. The left ventricular diastolic function is grade I diastolic dysfunction. 5. Right ventricular systolic function is normal. 6. There is mild mitral valve regurgitation. Left Ventricle Left ventricular chamber dimension is normal. Left ventricular systolic function is normal, estimated at >70%. There is no increased left ventricular wall thickness. The left ventricular diastolic function is grade I diastolic dysfunction. Right Ventricle Right ventricular chamber dimension is normal. Right ventricular systolic function is normal. Left Atria Left atrial chamber dimension is normal. Right Atria Right atrial chamber dimension is normal. Atrial Septum Intact interatrial septum visualized by color flow imaging. Aortic Valve The aortic valve is trileaflet. There is no aortic valve stenosis. There is no aortic valve regurgitation. There is mild aortic valve calcification. Pulmonic Valve The pulmonic valve is not well visualized. Mitral Valve There is mild mitral valve regurgitation. The mitral valve annulus is moderately calcified. Tricuspid Valve There is trace tricuspid valve regurgitation. Pericardium/Pleural There is no pericardial effusion. Inferior Vena Cava Inferior vena cava is normal size. Aorta The aortic root size at the sinus of Valsalva is normal. Left Ventricular Outflow Tract Name Value Normal LVOT 2D LVOT Diameter 1.9 cm LVOT Doppler LVOT Peak Gradient 3 mmHg LVOT Mean Gradient 1 mmHg LVOT VTI 19 cm LVOT VTI/AV VTI Ratio 0.7 LVOT Stroke Volume 52 ml LVOT CO 3.1 l/min LVOT CI 2.4 l/min/m2 Pulmonic Valve Name Value Normal RVOT Doppler RVOT Peak Gradient 2 mmHg PV Doppler PV Peak Gradient 4 mmHg Mitral Valve -----
[2023-03-22] MEDS: traMADol HCL (*CRX) 50 MG TABLET PO ×2 (00:38→08:49)
[2023-03-22] MEDS: LEVOTHYROXINE SODIUM 75 MCG TABLET PO (05:54)
[2023-03-22] MEDS: LABETALOL HCL INJ 100 MG/20 ML VIAL 20 MG IV PUSH ×3 (05:54→20:20)
[2023-03-22] MEDS: ACETAMINOPHEN 325 MG TABLET 650 MG PO ×3 (06:14→20:19)
[2023-03-22] MEDS: lisinopriL 20 MG TABLET 40 MG PO (08:49)
[2023-03-22] MEDS: ASPIRIN 81 MG ENTERIC TABLET PO (08:50)
[2023-03-22] MEDS: SIMVASTATIN 20 MG TABLET PO (08:50)
[2023-03-22] MEDS: hydrALAZINE HCL 25 MG TABLET PO ×2 (08:50→12:17)
[2023-03-22] MEDS: PANTOPRAZOLE 40 MG TABLET PO (08:50)
[2023-03-22] MEDS: ONDANSETRON INJ 4 MG/2 ML VIAL IV PUSH (08:52)
[2023-03-22] MEDS: oxyCODONE/ACETAMINOPHEN (*CRX) 5-325 MG TABLET 1 TABLET PO ×2 (14:32→21:17)
--- NOTE | 2023-03-22 15:06 | PM.IMPN ---
Progress Note: A&P Assessment and Plan (1) Hypertensive emergency: Code(s): I16.1 - Hypertensive emergency Status: Acute Assessment and Plan: CT head is negative No focal abnl Stop IV labetolol regular dosing increase hydralazine dose increase hypertensives and add pain control (2) Headache: Qualifiers: Headache chronicity pattern: acute headache Headache type: unspecified Intractability: intractable Qualified Code(s): R51.9 - Headache, unspecified Code(s): R51.9 - Headache, unspecified Status: Acute Assessment and Plan: LIKELY SECONDARY TO HYPERTENSION SUPPORTIVE CARE (3) Speech disturbance: Code(s): R47.9 - Unspecified speech disturbances Status: Acute Assessment and Plan: ct head is negative MRI head shows Likely incidental developmental venous anomaly in the right frontal lobe. No acute intracranial process or other abnormally enhancing brain lesions. 2. Scattered periventricular predominant white matter T2 hyperintensity which is within normal limits for age and likely sequela of chronic small vessel ischemic disease CT head and MRI head is negative -stroke looks unlikely Subjective Date/time seen: 03/22/23 15:06 Interval history: 82-YEAR-OLD FEMALE WITH PAST MEDICAL HISTORY SIGNIFICANT FOR HYPERTENSION, HYPOTHYROIDISM, OSTEOARTHRITIS, LOWER BACK PAIN, PATIENT COMES TO THE EMERGENCY ROOM AFTER HAVING EPISODE OF SPEECH DISTURBANCE HEADACHE? BLURRY VISION.? 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 and her speech is better now. CT hed and MRi head ar negative for stroke. Pt sees pain management for chronic severe back pain and receives epidural shots Plan stop iv labetolol and increase oral BP meds add pain meds and see if Bp improves Review of Systems Review of Systems: Nausea and headaches Exam Const: General: comfortable, no acute distress, well developed, alert, awake and average body habitus Nutritional Appearance: average body habitus Orientation/consciousness: patient oriented x3 Resp: Effort & Inspection: normal respiratory effort and able to speak in complete sentences Auscultation: clear to auscultation bilaterally Cardio: Jugular venous distension: no JVD Rate: regular rate Rhythm: regular rhythm Heart sounds: S1 normal heart sound present and S2 normal heart sound present Skin: Rashes: no rashes Wounds: no wounds Neuro: General: patient oriented x3, CN's II-XI intact bilaterally and Unable to assess gait Cranial nerves: Yes CN's II-XII intact bilaterally and Yes Equal, round and reactive pupils present Cognition (Neuro): normal cognition Speech: normal speech and Abnormal speech present Gait exam (Neuro): Unable to assess gait Motor exam (neuro): 5/5 motor strength present throughout Sensory Exam: No Sensory deficit (Neuro) Extrem: General: normal to inspection, full ROM, no joint enlargement and no pedal edema Objective Data Vital Signs Vital Signs: Vital Signs - 24 hr 03/21/23 16:46 03/21/23 18:49 03/21/23 16:00 Temperature 37.1 C Pulse Rate 79 65 69 Respiratory Rate 16 Blood Pressure 194/79 H 183/75 H Pulse Oximetry 97 Oxygen Delivery 03/21/23 20:00 03/21/23 20:00 03/21/23 20:00 Temperature 36.4 C Pulse Rate 70 79 70 Respiratory Rate 20 20 Blood Pressure 189/75 H Pulse Oximetry 96 96 Oxygen Delivery Room Air 03/22/23 00:00 03/22/23 04:00 03/22/23 05:54 Temperature Pulse Rate 60 67 69 Respiratory Rate Blood Pressure Pulse Oximetry Oxygen Delivery 03/22/23 04:00 03/22/23 07:00 03/22/23 10:35 Temperature 36.4 C 36.4 C Pulse Rate 67 69 Respiratory Rate 16 20 Blood Pressure 191/79 H 176/60 H 185/66 H Pulse Oximetry 93 98 Oxygen Delivery 03/22/23 12:17 03/22/23 08:50
[2023-03-22] MEDS: hydrALAZINE HCL 25 MG TABLET 50 MG PO (16:29)
[2023-03-22 17:30] LABS: Basophils Absolute Auto 0.1 K/mm3 (0.0-0.1); Basophils Percent Auto 0.6 % (0.2-1.2); Eosinophils Absolute Auto 0.1 K/mm3 (0-0.3); Eosinophils Percent Auto 1.3 % (0-4.4); Hematocrit 36.7 % (37.0-47.0); Hemoglobin 12.5 g/dL (12.0-15.0); Immature Granulocyte Absolute 0.02 K/mm3 (0.00-0.031); Immature Granulocyte Percent A 0.3 % (0-0.5); Lymphocytes Absolute Auto 1.29 K/mm3 (0.9-3.2); Lymphocytes Percent Auto 16.5 % (18.3-44.2); Mean Corpuscular HGB Conc 34.1 g/dl (32-36); Mean Corpuscular Hemoglobin 35.2 pg (26-34); Mean Corpuscular Volume 103.4 fl (80-100); Mean Platelet Volume 8.7 fl (7.4-10.4); Monocytes Absolute Auto 0.8 K/mm3 (0.1-0.6); Neutrophils Absolute Auto 5.6 K/mm3 (1.3-6.7); Neutrophils Percent Auto 71.3 % (45.5-73.1); Platelet Count Result 280 k/mm3 (150-375); Red Blood Count 3.55 M/mm3 (4.2-5.4); Red Cell Distribution Width 12.5 % (11.5-14.5); White Blood Count 7.8 K/mm3 (4.5-10.0)
[2023-03-22 17:56] LABS: Anion Gap 9 mmol/L (8-16); Blood Urea Nitrogen 13 mg/dL (7-17); Calcium 8.6 mg/dL (8.4-10.2); Carbon Dioxide 23 mmol/L (22-30); Chloride 97 mmol/L (98-107); Estimated Glomerular Filt Rate > 60; Glucose 100 mg/dL (65-110); Potassium 4.3 mmol/L (3.4-5.0); Sodium 129 mmol/L (137-145)
[2023-03-23] VITALS (17 sets, daily range): BP systolic 132–200; BP diastolic 49–82; PULSE 55–85; RESP 12–16; TEMP 36.1–37.4; O2SAT 97–99
[2023-03-23] MEDS: LABETALOL HCL INJ 100 MG/20 ML VIAL 20 MG IV PUSH ×3 (01:48→23:59)
[2023-03-23] MEDS: traMADol HCL (*CRX) 50 MG TABLET PO ×2 (01:49→09:42)
[2023-03-23] MEDS: oxyCODONE/ACETAMINOPHEN (*CRX) 5-325 MG TABLET 1 TABLET PO ×3 (05:48→21:23)
[2023-03-23] MEDS: LEVOTHYROXINE SODIUM 75 MCG TABLET PO (05:48)
--- NOTE | 2023-03-23 08:45 | PM.CNCAR ---
Assessment and Plan Assessment and plan (1) Hypertensive emergency: Code(s): I16.1 - Hypertensive emergency Status: Acute Assessment and Plan: Significant hypertension since time of admission with SBP generally 170 - 200 mmHg. Her home lisinopril was restarted but amlodipine and HCTZ were not and she is now on hydralazine. She describes angioedema with severe lip, face, and tongue swelling that occurs about 4-5 times per year. Because of this, I am going to stop her lisinopril and start losartan 50mg daily this morning. Prior to med administration this morning her BP was 153/82, so will hold off on adding back amlodipine at this point as to hopefully cautiously/gradually lower BP. If BP remains stable throughout the day will add this back to her regimen. Will also check renal artery u/s. She does take NSAIDs chronically for pain which will need to be avoided moving forward. Echo has been ordered and is pending. Further recommendations to follow. History of Present Illness History of Present Illness Consult date/time: 03/23/23 08:45 Requesting physician: Mayte Belcher MD Consult reason: hypertension Reason For Visit: weakness, hypertension Narrative: Debra Kevin is a 82 year old female with chronic back pain, hypertension, hypothyroidism, and TIA's. She presented to the hospital with complaints of difficulty speaking and difficulty concentrating. Workup for this including head CT and MRI brain were negative for any acute process. During her hospital stay she has been significantly hypertensive with SBP ~200 mmHg. Though she does have a history of hypertension she reports that her blood pressure has always been well controlled on lisinopril, amlodipine, and HCTZ at home. She denies any chest pain, palpitations, shortness of breath. Does report a constant headache. Sitting comfortably in the chair eating breakfast at the time of my visit with her. Review of Systems Review of Systems: All systems reviewed & are unremarkable except as noted in HPI and below PMFSH Past Medical History Medical History Acute sinusitis Carpal tunnel syndrome Disorder of coccyx Essential hypertension Gallstone Hx of transient ischemic attack (TIA) Hyperlipidemia Hypertriglyceridemia Hypothyroidism Knee pain Low back pain Malignant melanoma Osteoarthritis Overactive bladder Spinal enthesopathy Wrist joint pain Surgical History Surgical History History of basal cell carcinoma excision History of carpal tunnel surgery Hx of total knee replacement Hx of vaginal surgery Family History Family History Father Cerebrovascular accident Mother Family history of Alzheimer's disease Family history of congestive heart failure Sibling Family history of Alzheimer's disease Family history of heart disease in male family member before age 55 Social History Social History Smoking status: Never smoker Alcohol intake: current Drinks per week: 3 Substance use: never Substance use type: does not use Lack of Transportation: No Lack of Food: Never True Current Housing: I Have Housing Concerned About Future Housing: No Difficulty Paying Gas/Electric Bills: No Difficulty Paying for Meds: No Currently Unemployed: No Education: High School Diploma/GED Difficulty w/ Childcare or Family Care: No Living arrangements: alone Spiritual care concerns: No Meds Home Medications and Allergies Home Medications Medication Instructions Recorded Confirmed Type amitriptyline 25 mg tablet 25 mg PO QHS 07/09/22 03/20/23 History amlodipine 5 mg tablet 5 mg PO DAILY 07/09/22 03/20/23 History gabapentin 300 mg capsule 300 mg PO HS 07/09/22 03/20/23 History hydrochlorothiazide 12.5
[2023-03-23] MEDS: ASPIRIN 81 MG ENTERIC TABLET PO (09:39)
[2023-03-23] MEDS: SIMVASTATIN 20 MG TABLET PO (09:39)
[2023-03-23] MEDS: LOSARTAN POTASSIUM 50 MG TABLET PO (09:39)
[2023-03-23] MEDS: hydrALAZINE HCL 25 MG TABLET 50 MG PO ×3 (09:39→16:41)
[2023-03-23] MEDS: PANTOPRAZOLE 40 MG TABLET PO (09:39)
--- NOTE | 2023-03-23 14:06 | PM.IMPN ---
Progress Note: A&P Assessment and Plan (1) Hypertensive emergency: Code(s): I16.1 - Hypertensive emergency Status: Acute Assessment and Plan: CT head is negative No focal abnl Stop IV labetolol regular dosing increase hydralazine dose increase hypertensives and add pain control Bp is stable with hydralazine and losartan Pain control is better with tramadol and oxycodone (2) Headache: Qualifiers: Headache chronicity pattern: acute headache Headache type: unspecified Intractability: intractable Qualified Code(s): R51.9 - Headache, unspecified Code(s): R51.9 - Headache, unspecified Status: Acute Assessment and Plan: LIKELY SECONDARY TO HYPERTENSION SUPPORTIVE CARE (3) Speech disturbance: Code(s): R47.9 - Unspecified speech disturbances Status: Acute Assessment and Plan: ct head is negative MRI head shows 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 No acute intracranial process or other abnormally enhancing brain lesions. 2. 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 CT hed and MRi head ar negative for stroke. Pt sees pain management for chronic severe back pain and receives epidural shots Plan stop iv labetolol and increase oral BP meds add pain meds and see if Bp improves Pt bp is better today pt feels better plan for pt to ambulate more today and DC home tomorrow Review of Systems Review of Systems: No specific complaints Exam Const: General: comfortable, no acute distress, well developed, alert, awake and average body habitus Nutritional Appearance: average body habitus Orientation/consciousness: patient oriented x3 HENMT: Head: normal to inspection, normocephalic and atraumatic Ears: hearing grossly normal bilaterally Face/Nose/Sinus: normal facial exam Face and sinus: normal facial exam Eyes: General: appearance normal, both eyes and all related structures Pupils: Equal, round and reactive pupils present EOM: EOMs intact bilaterally Neck: Neck: full ROM, no lymphadenopathy and no JVD Thyroid: thyroid normal Lymphatic: no lymphadenopathy noted Resp: Effort & Inspection: normal respiratory effort and able to speak in complete sentences Auscultation: clear to auscultation bilaterally Cardio: Jugular venous distension: no JVD Rate: regular rate Rhythm: regular rhythm Heart sounds: S1 normal heart sound present and S2 normal heart sound present : General: Yes deferred Skin: Rashes: no rashes Wounds: no wounds Neuro: General: patient oriented x3, CN's II-XI intact bilaterally and Unable to assess gait Cranial nerves: Yes CN's II-XII intact bilaterally and Yes Equal, round and reactive pupils present Cognition (Neuro): normal cognition Speech: normal speech and Abnormal speech present Gait exam (Neuro): Unable to assess gait Motor exam (neuro): 5/5 motor strength present throughout Sensory Exam: No Sensory deficit (Neuro) Extrem: General: normal to inspection, full ROM, no joint enlargement and no pedal edema Objective Data Vital Signs Vital Signs: Vital Signs - 24 hr 03/22/23 17:32 03/22/23 16:00 03/22/23 16:00 Temperature 36.6 C Pulse Rate 68 84 Respiratory Rate 14 Blood Pressure 187/84 H 205/92 H Pulse Oximetry 97 Oxygen Delivery 03/22/23 20:06 03/22/23 20:20 03/22/23 21:13 Temperature Pulse Rate 64 Respiratory Rate Blood Pressure 182/80 H
[2023-03-23] MEDS: ACETAMINOPHEN 325 MG TABLET 650 MG PO (16:44)
[2023-03-24] VITALS (14 sets, daily range): BP systolic 120–188; BP diastolic 49–77; PULSE 58–81; RESP 12–16; TEMP 36.2–36.9; O2SAT 94–98
--- NOTE | 2023-03-24 00:06 | PC.NURSE ---
blood pressures increasing this shift and monitored closely. labetolol 20mg IVP given for BP of 188/64
[2023-03-24] MEDS: LABETALOL HCL INJ 100 MG/20 ML VIAL 20 MG IV PUSH ×2 (05:53→20:26)
--- NOTE | 2023-03-24 07:45 | PC.NURSE ---
unable to get ahold of US to confirm whether or not it is safe to administered synthroid and percocet before procedure despite being NPO. failed to reach US staff 3x. This RN did not give synthroid or scheduled percocet, they are still in the MAR so they can be given when patient's diet is resumed.
[2023-03-24] MEDS: amLODIPine BESYLATE 5 MG TABLET PO (09:10)
[2023-03-24] MEDS: oxyCODONE/ACETAMINOPHEN (*CRX) 5-325 MG TABLET 1 TABLET PO ×3 (09:10→21:39)
[2023-03-24] MEDS: SIMVASTATIN 20 MG TABLET PO (09:11)
[2023-03-24] MEDS: ASPIRIN 81 MG ENTERIC TABLET PO (09:11)
[2023-03-24] MEDS: hydrALAZINE HCL 25 MG TABLET 50 MG PO ×3 (09:11→16:08)
[2023-03-24] MEDS: PANTOPRAZOLE 40 MG TABLET PO (09:11)
--- NOTE | 2023-03-24 09:12 | PC.NURSE ---
Pt went for US around 0730 and was npo. Pt did not get scheduled pain medicine until 0900. pt now eating.
--- NOTE | 2023-03-24 11:15 | PM.IMPN ---
Progress Note: A&P Assessment and Plan (1) Hypertensive emergency: Code(s): I16.1 - Hypertensive emergency Status: Acute Assessment and Plan: CT head is negative No focal abnl Stop IV labetolol regular dosing increase hydralazine dose increase hypertensives and add pain control Bp is stable with hydralazine and losartan Pain control is better with tramadol and oxycodone (2) Headache: Qualifiers: Headache chronicity pattern: acute headache Headache type: unspecified Intractability: intractable Qualified Code(s): R51.9 - Headache, unspecified Code(s): R51.9 - Headache, unspecified Status: Acute Assessment and Plan: LIKELY SECONDARY TO HYPERTENSION SUPPORTIVE CARE (3) Speech disturbance: Code(s): R47.9 - Unspecified speech disturbances Status: Acute Assessment and Plan: ct head is negative MRI head shows 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 No acute intracranial process or other abnormally enhancing brain lesions. 2. Scattered periventricular predominant white matter T2 hyperintensity which is within normal limits for age and likely sequela of chronic small vessel ischemic disease CT head and MRI head is negative -stroke looks unlikely PT/ OT today and dC tomorrow Subjective Date/time seen: 03/24/23 11:15 Interval history: No complaints of chest pain. Exam Const: General: comfortable, no acute distress, well developed, alert, awake and average body habitus Nutritional Appearance: average body habitus Orientation/consciousness: patient oriented x3 HENMT: Head: normal to inspection, normocephalic and atraumatic Ears: hearing grossly normal bilaterally Face/Nose/Sinus: normal facial exam Face and sinus: normal facial exam Eyes: General: appearance normal, both eyes and all related structures Pupils: Equal, round and reactive pupils present EOM: EOMs intact bilaterally Neck: Neck: full ROM, no lymphadenopathy and no JVD Thyroid: thyroid normal Lymphatic: no lymphadenopathy noted Resp: Effort & Inspection: normal respiratory effort and able to speak in complete sentences Auscultation: clear to auscultation bilaterally Cardio: Jugular venous distension: no JVD Rate: regular rate Rhythm: regular rhythm Heart sounds: S1 normal heart sound present and S2 normal heart sound present : General: Yes deferred Skin: Rashes: no rashes Wounds: no wounds Neuro: General: patient oriented x3, CN's II-XI intact bilaterally and Unable to assess gait Cranial nerves: Yes CN's II-XII intact bilaterally and Yes Equal, round and reactive pupils present Cognition (Neuro): normal cognition Speech: normal speech and Abnormal speech present Gait exam (Neuro): Unable to assess gait Motor exam (neuro): 5/5 motor strength present throughout Sensory Exam: No Sensory deficit (Neuro) Extrem: General: normal to inspection, full ROM, no joint enlargement and no pedal edema Objective Data Vital Signs Vital Signs: Vital Signs - 24 hr 03/23/23 13:22 03/23/23 16:00 03/23/23 12:00 Temperature Pulse Rate 68 Respiratory Rate Blood Pressure 136/63 153/64 H Pulse Oximetry Oxygen Delivery 03/23/23 16:00 03/23/23 20:00 03/23/23 21:26 Temperature 99.3 F Pulse Rate 68 75 68 Respiratory Rate 12 Blood Pressure 146/65 H 172/82 H Pulse Oximetry 98 98 Oxygen Delivery 03/23/23 20:00 03/23/23 20:00 03/23/23 23:59 Temperature Pulse Rate 76 70 Respiratory Rate Blood Pressure Pulse Oximetry Oxygen Delivery Room Air 03/24/23 00:00 03/24/23 01:27 03/24/23 00:00 Temperature 97.6 F Pulse Rate 72 63 59 L Respiratory Rate 12 Blood Pressure 188/64 H 160/60 H Pulse Oximetry 98 Oxygen Delivery 03/24/23 04:00 03/24/23 05:53 03/24/23 04:00 Temperature 97.7 F Pulse Rate 64 69 81 Respiratory Rate 12 Blood Pressure 186/69 H Pulse Oximetry 98 Ox
[2023-03-24] MEDS: ACETAMINOPHEN 325 MG TABLET 650 MG PO ×2 (12:14→18:05)
--- NOTE | 2023-03-24 13:58 | PM.PNCARD ---
Progress Note: A&P Assessment and Plan (1) Hypertensive emergency: Code(s): I16.1 - Hypertensive emergency Status: Acute Assessment and Plan: Significant hypertension at time of admission.? Her home lisinopril was restarted but amlodipine and HCTZ were not and she is now on hydralazine.? She describes angioedema with severe lip, face, and tongue swelling that occurs about 4-5 times per year.? Because of this, we stopped her lisinopril. Avod ARB as well due to possible cross-reactivity with ARB in regards to angioedema. Therefore, we resumed home Amlodipine. Echocardiogram with preserved LVEF. Renal Doppler negative for renal artery stenosis. At this time, continue with Hydralazine 50mg TID, Amlodipine 5mg QD. If additional blood pressure control is needed, then would increase dose of Amlodipine. Anticipate discharge tomorrow if blood pressure remains okay. Subjective Date/time seen: 03/24/23 13:58 Interval history: Reason for visit: Hypertensive emergency HPI: Debra Kevin is a 82 year old female with chronic back pain, hypertension, hypothyroidism, and TIA's.? She presented to the hospital with complaints of difficulty speaking and difficulty concentrating.? Workup for this including head CT and MRI brain were negative for any acute process.? During her hospital stay she has been significantly hypertensive with SBP ~200 mmHg.? Though she does have a history of hypertension she reports that her blood pressure has always been well controlled on lisinopril, amlodipine, and HCTZ at home.? She denies any chest pain, palpitations, shortness of breath.? Does report a constant headache.? Sitting comfortably in the chair eating breakfast at the time of my visit with her.? Date of service 03/24: Feeling okay today, feeling a little weak. No chest pain, shortness of breath. Exam Const: General: comfortable and no acute distress Eyes: General: appearance normal, both eyes and all related structures Sclera: sclerae normal Neck: Neck: supple Resp: Effort & Inspection: normal respiratory effort Auscultation: clear to auscultation bilaterally Cardio: Rate: regular rate Rhythm: regular rhythm Skin: General skin exam: normal color Neuro: Speech: normal speech Psych: Mental Status: mental status grossly normal Affect: normal affect Objective Data Vital Signs Vital Signs: Vital Signs - 24 hr 03/23/23 16:00 03/23/23 16:00 03/23/23 20:00 Temperature 37.4 C Pulse Rate 68 75 Respiratory Rate 12 Blood Pressure 153/64 H 146/65 H Pulse Oximetry 98 Oxygen Delivery 03/23/23 21:26 03/23/23 20:00 03/23/23 20:00 Temperature Pulse Rate 68 76 Respiratory Rate Blood Pressure 172/82 H Pulse Oximetry 98 Oxygen Delivery Room Air 03/23/23 23:59 03/24/23 00:00 03/24/23 01:27 Temperature 36.4 C Pulse Rate 70 72 63 Respiratory Rate 12 Blood Pressure 188/64 H 160/60 H Pulse Oximetry 98 Oxygen Delivery 03/24/23 00:00 03/24/23 04:00 03/24/23 05:53 Temperature 36.5 C Pulse Rate 59 L 64 69 Respiratory Rate 12 Blood Pressure 186/69 H Pulse Oximetry 98 Oxygen Delivery 03/24/23 04:00 03/24/23 06:46 03/24/23 08:00 Temperature Pulse Rate 81 58 L 58 L Respiratory Rate Blood Pressure 176/68 H Pulse Oximetry Oxygen Delivery 03/24/23 08:30 03/24/23 12:00 Temperature 36.6 C Pulse Rate 70 79 Respiratory Rate 15 Blood Pressure 120/55 L Pulse Oximetry 96 Oxygen Delivery Intake/Output Intake/Output: Intake & Output 03/21/23 03/22/23 03/23/23 03/24/23 23:59 23:59 23:59 23:59 Intake Total 587 1150 1720 390 Output Total 1 Balance 587 1150 1719 390 Meds/Results Medications: Active Medications Generic Name Dose Route Start Last Admin Trade Name Freq PRN Reason Stop Dose Admin Acetaminophen 650 mg 03/19/23 22:06 03/24/23 12:14 Acetaminophen 325 Mg Tablet PO 650 mg Q4H PRN Administration Mild Pain (
[2023-03-25] VITALS (8 sets, daily range): BP systolic 124–180; BP diastolic 56–78; PULSE 62–104; RESP 14–16; TEMP 36.4–36.9; O2SAT 96–99
[2023-03-25] MEDS: traMADol HCL (*CRX) 50 MG TABLET PO (01:50)
[2023-03-25] MEDS: LABETALOL HCL INJ 100 MG/20 ML VIAL 20 MG IV PUSH (04:20)
[2023-03-25] MEDS: ACETAMINOPHEN 325 MG TABLET 650 MG PO ×2 (04:20→12:13)
[2023-03-25] MEDS: oxyCODONE/ACETAMINOPHEN (*CRX) 5-325 MG TABLET 1 TABLET PO ×2 (06:25→13:20)
[2023-03-25] MEDS: LEVOTHYROXINE SODIUM 75 MCG TABLET PO (06:25)
[2023-03-25] MEDS: hydrALAZINE HCL 25 MG TABLET 50 MG PO ×2 (08:59→12:12)
[2023-03-25] MEDS: PANTOPRAZOLE 40 MG TABLET PO (08:59)
[2023-03-25] MEDS: amLODIPine BESYLATE 5 MG TABLET PO (08:59)
[2023-03-25] MEDS: ASPIRIN 81 MG ENTERIC TABLET PO (08:59)
[2023-03-25] MEDS: SIMVASTATIN 20 MG TABLET PO (08:59)
[2023-03-25] MEDS: ONDANSETRON INJ 4 MG/2 ML VIAL IV PUSH (09:06)
--- NOTE | 2023-03-25 11:49 | PM.DS ---
DS: Admitting Diagnosis Discharge Date 03/25/23 Admitting Diagnosis htn DS: Discharge Diagnosis Discharge Diagnosis (1) Hypertensive emergency: Code(s): I16.1 - Hypertensive emergency Status: Acute Assessment and Plan: CT head is negative No focal abnl Stop IV labetolol regular dosing increase hydralazine dose increase hypertensives and add pain control Bp is stable with hydralazine and losartan Pain control is better with tramadol and oxycodone (2) Headache: Qualifiers: Headache chronicity pattern: acute headache Headache type: unspecified Intractability: intractable Qualified Code(s): R51.9 - Headache, unspecified Code(s): R51.9 - Headache, unspecified Status: Acute Assessment and Plan: LIKELY SECONDARY TO HYPERTENSION SUPPORTIVE CARE (3) Speech disturbance: Code(s): R47.9 - Unspecified speech disturbances Status: Acute Assessment and Plan: ct head is negative MRI head shows 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 No acute intracranial process or other abnormally enhancing brain lesions. 2. Scattered periventricular predominant white matter T2 hyperintensity which is within normal limits for age and likely sequela of chronic small vessel ischemic disease CT head and MRI head is negative -stroke looks unlikely PT/ OT today and dC tomorrow DS: Summary Hospital Course Hospital Course: admitted for htn - cardiology consult, medications adjusted, will be dc on hydralazine and amlodipine for bp control, ok for dc, fu cardiology Time Spent with Patient Time attestation: Total time spent providing and/or coordinating discharge services: Exam Const: General: comfortable, no acute distress, well developed, alert, awake and average body habitus Nutritional Appearance: average body habitus Orientation/consciousness: patient oriented x3 HENMT: Head: normal to inspection, normocephalic and atraumatic Ears: hearing grossly normal bilaterally Face/Nose/Sinus: normal facial exam Face and sinus: normal facial exam Eyes: General: appearance normal, both eyes and all related structures Pupils: Equal, round and reactive pupils present EOM: EOMs intact bilaterally Neck: Neck: full ROM, no lymphadenopathy and no JVD Thyroid: thyroid normal Lymphatic: no lymphadenopathy noted Resp: Effort & Inspection: normal respiratory effort and able to speak in complete sentences Auscultation: clear to auscultation bilaterally Cardio: Jugular venous distension: no JVD Rate: regular rate Rhythm: regular rhythm Heart sounds: S1 normal heart sound present and S2 normal heart sound present : General: Yes deferred Skin: Rashes: no rashes Wounds: no wounds Neuro: General: patient oriented x3, CN's II-XI intact bilaterally and Unable to assess gait Cranial nerves: Yes CN's II-XII intact bilaterally and Yes Equal, round and reactive pupils present Cognition (Neuro): normal cognition Speech: normal speech and Abnormal speech present Gait exam (Neuro): Unable to assess gait Motor exam (neuro): 5/5 motor strength present throughout Sensory Exam: No Sensory deficit (Neuro) Extrem: General: normal to inspection, full ROM, no joint enlargement and no pedal edema Discharge Plan Discharge Attending physician on discharge: Braulio Redd Consulting providers: Aisha Villavicencio; Jasmeet Pace Discharging Clinician: Braulio Redd Patient Disposition: Home, Self-Care Activity: as tolerated Diet: as tolerated Patient Instructions: Antibiotic Form Stand Alone Forms: General Discharge Information Follow-up/Referrals: Jasmeet Pace MD [Physician] - [facility],Patrick Davenport MD [Primary Care Provider] - Discharge Medications: New hydralazine 25 mg Tablet 50 mg PO TID 3 Days Qty: 18 0RF amlodipine [Norvasc] 5 mg Tablet 10 mg PO QAM 30 Days Qty: 60 0RF Continued tizanidi
--- NOTE | 2023-03-25 12:12 | PCNFU ---
Nutrition Follow-Up Complete: Suboptimal po intake related to poor appetite as evidenced by pt report Goal:PO Intake 50% or greater for meals and supplements Pt meeting goal. Continue with same goal. Pt current nutrition is Heart healthy, nutrition ice cream daily. Nutrition recommendation: continue with current plan of care Last recorded weight is 46.4 kg. Bowel Motility: no BM recorded at this time Labs Reviewed: Hct:36.7, NA:129 Meds Noted: zofran, protonix Skin: no skin issues Additional Notes: Pt on a heart healthy diet, intake 70-100% of meals, nutrition ice cream daily. Tolerating. Monitor intake, wt, labs. Follow up in 7 days.
== END 2023-03-25 14:40 | disposition home or self-care (01) | DRG 305 ==
LOC: ANHED 22:06 → ANH3MEDSUR 03-20 00:25
PROVIDERS: Family Medicine; Preventive Medicine Aerospace Medicine; Admitting Provider Internal Medicine; Emergency Provider Physician Assistant; PCP Internal Medicine; Visit Provider Chiropractor
DX: I16.1 Hypertensive emergency (principal); R47.01 Aphasia; E03.9 Hypothyroidism, unspecified; G89.29 Other chronic pain; M54.9 Dorsalgia, unspecified; E78.5 Hyperlipidemia, unspecified; M19.90 Unspecified osteoarthritis, unspecified site; N32.81 Overactive bladder; Z96.659 Presence of unspecified artificial knee joint; Z20.822 Contact with and (suspected) exposure to COVID-19; Z85.828 Personal history of other malignant neoplasm of skin; Z79.82 Long term (current) use of aspirin; Z86.73 Personal history of transient ischemic attack (TIA), and cerebral infarction without residual deficits
CPT/HCPCS: 36415; 70450; 70496; 70498; 70553; 71046; 80048; 80053; 81003; 83735; 84100; 84443; 84484; 85025; 85610; 85730; 87636; 93005; 93306; 93976; 96361; 96374; 96375; 96376; 99285; A9270; A9577; G0378; J0360; J0780; J1170; J1200; J2405; J7030; Q9967